=== PATIENT | female | born 1970 | race Hispanic/Latino ===

== ENCOUNTER 2018-05-03 09:58 | Emergency (ER) | payer OTHER ==
[2018-05-03 09:59] VITALS: BMI 33.3
[2018-05-03 10:16] VITALS: RESP 18; TEMP 98.6
--- NOTE | 2018-05-03 10:32 | ED PDOC ---
Arrival/HPI - General Chief Complaint: Lower Extremity Problem/Injury Time Seen by Provider: 05/03/18 10:05 Historian: Patient - History of Present Illness Narrative History of Present Illness (Text): 05/03/18 10:29 This 47 yo female with a pmh DVT, varicose vein, leg edema, presents to this ED c/o left lower leg swelling, and left calf tenderness since last night. Patient admits intermittent b/l lower leg swelling for over 8 months. Patient also stated twisting her right ankle x 10 days ago, and still mild painful. Patient is ambulatory. Patient admits leg swelling has improved today. Patient denies SOB, CP, palpitation, recent surgery, recent travel, or recent illness. Time/Duration: Other (see hpi) Quality: Aching Context: Home Past Medical History - Provider Review Nursing Documentation Reviewed: Yes - Psychiatric Hx Depression: No Hx Emotional Abuse: No Hx Physical Abuse: No Hx Substance Use: No - Suicidal Assessment Feels Threatened In Home Enviroment: No Family/Social History Family/Social History: Other (noncontributory) Smoking Status: Current Some Days Smoker Hx Alcohol Use: No Hx Substance Use: No Hx Substance Use Treatment: No Allergies/Home Meds Allergies/Adverse Reactions: Allergies No Known Allergies Allergy (Verified 06/10/12 10:11) Home Medications: Home Meds Medication Instructions Recorded Confirmed No Known Home Med 06/10/12 06/10/12 Review of Systems - Review of Systems Constitutional: Normal. absent: Fatigue, Weight Change, Fevers Eyes: Normal ENT: Normal Respiratory: Normal. absent: SOB, Cough, Sputum, Wheezing Cardiovascular: Normal, Edema, Calf Pain. absent: Chest Pain, Palpitations, SALINAS , Orthopnea, Syncope Gastrointestinal: Normal. absent: Abdominal Pain, Nausea, Vomiting Genitourinary Female: Normal Musculoskeletal: Normal Skin: Normal Neurological: Normal Endocrine: Normal Hemo/Lymphatic: Normal Psychiatric: Normal Physical Exam Vital Signs Temp Pulse Resp BP Pulse Ox 05/03/18 11:24 98 H 18 141/74 99 05/03/18 10:06 98.6 F 111 H 18 146/78 100 Temperature: Afebrile Blood Pressure: Normal Pulse: Tachycardic Respiratory Rate: Normal Appearance: Positive for: Well-Appearing, Non-Toxic, Comfortable Pain Distress: None Mental Status: Positive for: Alert and Oriented X 3 - Systems Exam Head: Present: Atraumatic, Normocephalic Pupils: Present: PERRL Extroacular Muscles: Present: EOMI Conjunctiva: Present: Normal Mouth: Present: Moist Mucous Membranes Neck: Present: Normal Range of Motion Respiratory/Chest: Present: Clear to Auscultation, Good Air Exchange. No: Respiratory Distress, Accessory Muscle Use Cardiovascular: Present: Regular Rate and Rhythm, Normal S1, S2. No: Murmurs Abdomen: No: Tenderness, Distention, Peritoneal Signs Back: Present: Normal Inspection Upper Extremity: Present: Normal Inspection, Normal ROM, NORMAL PULSES, Neurovascularly Intact, Capillary Refill < 2s. No: Cyanosis, Edema Lower Extremity: Present: Edema (b/l lower leg edema), CALF TENDERNESS ((+) mild left calf tenderness), NORMAL PULSES, Normal ROM, Neurovascularly Intact, Capillary Refill < 2 s. No: Erythema, Temperature Abnormalties Neurological: Present: GCS=15, CN II-XII Intact, Speech Normal, Motor Func Grossly Intact, Normal Sensory Function, Normal Cerebellar Funct, Gait Normal, Memory Normal Skin: Present: Warm, Dry, Normal Color. No: Rashes Psychiatric: Present: Alert, Oriented x 3, Normal Insight, Normal Concentration Medical Decision Making ED Course and Treatment: 05/03/18 12:38 Patient admits she did not take Lasix all day yesterday. She has missed multiple time Lasix because is affecting her job due to constant feeling to urinate. I recommended patient to be compliant to medication. That she should avoid Tylenol, OTC supplement, and alcohol. Low salt diet. To wear compression stocking. To f/u PMD, and private vascular surgery. Re-evaluation. Patient feels better. Discussed results and plan with patient who expresses understanding. All questions answered and there is agreement with the plan to discharge home with instructions. Patient stable for discharge. Return if symptoms persist or worsen. Re-evaluation Time: 12:41 Reassessment Condition: Re-examined, Improved - Lab Interpretations Lab Results: 05/03/18 10:50 05/03/18 10:50 Lab Results 05/03/18 10:50: Sodium 138, Potassium 4.0, Chloride 100, Carbon Dioxide 28, Anion Gap 14, BUN 12, Creatinine 0.6 L, Est GFR ( Amer) > 60, Est GFR ( Non-Af Amer) > 60, Random Glucose 127 H, Calcium 8.7, Total Bilirubin 1.0, AST 90 H, ALT 96 H, Alkaline Phosphatase 92, Total Protein 7.2, Albumin 3.8, Globulin 3.4, Albumin/Globulin Ratio 1.1 05/03/18 10:50: PT 11.4, INR 0.99, APTT 27.5 05/03/18 10:50: WBC 8.5, RBC 4.80, Hgb 15.1, Hct 42.1, MCV 87.7, MCH 31.5, MCHC 35.9, RDW 12.7, Plt Count 176, MPV 10.1, Gran % 57.9, Lymph % (Auto) 33.2, [place] % (Auto) 6.5 H, Eos % (Auto) 2.0, Baso % (Auto) 0.4, Gran # 4.90, Lymph # (Auto ) 2.8, [place] # (Auto) 0.6, Eos # (Auto) 0.2, Baso # (Auto) 0.03 I have reviewed the lab results: Yes Interpretation: Abnormal lab values (mild elevated LFTs) - RAD Interpretation Narrative RAD Interpretations (Text): 05/03/18 12:41 BlL Lower extremity Venous Doppler: No DVT as per US PROCEDURE: Right Ankle Radiographs. HISTORY: pain COMPARISON: None FINDINGS: BONES: Normal. No fracture. JOINTS: Normal. No osteoarthritis. Ankle mortise maintained. Talar dome intact SOFT TISSUES: Normal. OTHER FINDINGS: None. IMPRESSION: Normal right ankle radiographs. Radiology Orders: 05/03/18 10:27 DUPLEX LOWER EXTRM VEIN BILAT [US] Stat 05/03/18 10:28 ANKLE RIGHT 3 VIEWS ROUTINE [RAD] Stat Disposition/Present on Arrival - Present on Arrival Any Indicators Present on Arrival: No History of DVT/PE: Yes History of Uncontrolled Diabetes: No Urinary Catheter: No History of Decub. Ulcer: No History Surgical Site Infection Following: None - Disposition Have Diagnosis and Disposition been Completed?: Yes Diagnosis: Leg edema, Varicose vein of leg, Liver enzyme elevation Disposition: HOME/ ROUTINE Disposition Time: 12:42 Patient Plan: Discharge Patient Problems: Current Active Problems Problem Status Onset Leg edema Acute Varicose vein of leg Acute Condition: GOOD Discharge Instructions (ExitCare): Varicose Veins (DC), Dependent Edema (DC) Additional Instructions: Call private doctor for follow up visit in 1-2 days. Continue with home medication as instructed by your doctor. Wear compression stocking, low salt diet. Return to emergency if symptoms worsen, shortness of breath or chest pain. Consider repeat ultrasound of lower leg is swelling persist or worsen, or leg/calf pain Referrals: Mustapha Saldana MD [Primary Care Provider] - Follow up with primary Klever Pringle MD [Medical Doctor] - Follow up with primary Klaus Nichols MD [Staff Provider] - Follow up with primary Forms: [facility] (Greek), WORK NOTE
[2018-05-03 11:04] LABS: BASO # 0.03 K/mm3 (0.0-2.0); BASO % 0.4 % (0.0-3.0); EOS # 0.2 (0.0-0.7); GRAN # 4.9 (1.4-6.5); GRAN % 57.9 % (50.0-68.0); HEMOGLOBIN 15.1 g/dL (12.0-16.0); LYMPH # 2.8 (1.2-3.4); LYMPH % 33.2 % (22.0-35.0); MEAN CELL VOLUME 87.7 fl (80.0-105.0); MEAN CORPUSCULAR HEMOGLOBIN 31.5 pg (25.0-35.0); MEAN CORPUSCULAR HGB CONC 35.9 g/dl (31.0-37.0); MEAN PLATELET VOLUME 10.1 fl (7.0-11.0); MONO # 0.6 (0.1-0.6); MONO % 6.5 % (1.0-6.0); RBC 4.8 10^6/uL (3.5-6.1); RED CELL DISTRIBUTION WIDTH 12.7 % (11.5-14.5); WHITE BLOOD COUNT 8.5 10^3/ul (4.5-11.0)
[2018-05-03 11:16] LABS: INR 0.99 (0.93-1.08); PARTIAL THROMBOPLASTIN TIME 27.5 Seconds (25.1-36.5); PROTHROMBIN TIME 11.4 SECONDS (9.4-12.5)
[2018-05-03 11:25] VITALS: O2SAT 99
[2018-05-03 11:25] LABS: BLOOD UREA NITROGEN 12 mg/dL (7-21); GFR AFRICAN-AMERICAN > 60; GFR NON-AFRICAN AMERICAN > 60
[2018-05-03 11:26] LABS: ALB/GLOB RATIO 1.1 (1.1-1.8); ALBUMIN 3.8 g/dL (3.0-4.8); ALT/SGPT 96 U/L (7-56); AST/SGOT 90 U/L (14-36); CALCIUM 8.7 mg/dL (8.4-10.5)
--- NOTE | 2018-05-03 11:26 | RAD ---
Date of service: 05/03/2018 PROCEDURE: Right Ankle Radiographs. HISTORY: pain COMPARISON: None FINDINGS: BONES: Normal. No fracture. JOINTS: Normal. No osteoarthritis. Ankle mortise maintained. Talar dome intact SOFT TISSUES: Normal. OTHER FINDINGS: None. IMPRESSION: Normal right ankle radiographs.
[2018-05-03 13:17] VITALS: BP 136/75; PULSE 76
--- NOTE | 2018-05-03 20:08 | US ---
HISTORY: Leg pain and swelling. Evaluate for DVT PHYSICIAN(S): Klaus Nihcols MD. TECHNIQUE: Duplex sonography and color-flow Doppler with graded compression were used to evaluate the deep venous systems of both lower extremities. FINDINGS: The visualized deep venous systems of both lower extremities are sonographically normal and compressible. Normal wave forms and augmentation are seen. There is no sonographic evidence for deep venous thrombosis in the visualized segments of both lower extremities. IMPRESSION: No sonographic evidence for deep venous thrombosis in the visualized segments of both lower extremities.
== END 2018-05-03 13:12 | disposition home or self-care (01) ==
LOC: ED 09:58
DX: R60.0 Localized edema (principal); I83.90 Asymptomatic varicose veins of unspecified lower extremity; R74.8 Abnormal levels of other serum enzymes